=== PATIENT | male | born 2000 | race Hispanic/Latino ===

== ENCOUNTER → 2023-07-01 | Outpatient (CLI) | payer OTHER | LOC: M PLAIMG 13:42 | PROVIDERS: ATTEND Nurse Practitioner Family | DX: R07.9 Chest pain, unspecified (principal) ==

== ENCOUNTER 2023-07-29 11:38 | Emergency (ER) | payer OTHER ==
[~2023-07-29] VITALS: Ht 152.4 cm; Wt 89.6 kg
[2023-07-29 13:14] LABS: RSV AMPLIFICATION NEGATIVE (NEGATIVE)
[2023-07-29] MEDS ORDERED: BENZONATATE 100MG CAPSULE PO ONE (15:10)
[2023-07-29] MEDS ORDERED: BENZ200C70 PO (15:46)
[2023-07-29] MEDS ORDERED: ALBU8.5H INH (15:46)
[2023-07-29 15:57] VITALS: BP 144/82; TEMP 98.5; O2SAT 98
== END 2023-07-29 16:01 | disposition home or self-care (01) ==
LOC: M ED 11:38
DX: R05.9 Cough, unspecified (principal); R11.10 Vomiting, unspecified; R07.0 Pain in throat; F17.290 Nicotine dependence, other tobacco product, uncomplicated